=== PATIENT | female | born 1970 | race Native Hawaiian/Other Pacific Islander ===

== ENCOUNTER 2020-07-05 14:50 | Emergency (ER) | payer OTHER ==
[~2020-07-05] VITALS: Ht 157.5 cm; Wt 45.4 kg
[~2020-07-05 14:50] MED LIST: ASPIRIN ADULT L81 MG OR; CLARITIN10 MG PO; CYCL10TA35 PO; FLUTMIS2 INH; LANTUS100 MG/ML SC; METF500T PO; NEURONTIN800 MG PO; OMEP20CA PO; SERT100T PO; TOPIRAMATE50 MG PO
[2020-07-05 15:14] VITALS: BP 86/48; TEMP 97.4
[2020-07-05 15:31] LABS: PLATELET COUNT 279 K/uL (152-353)
[2020-07-05 15:45] LABS: PARTIAL THROMBOPLASTIN TIME 22.3 SECONDS (24.5-33.6)
[2020-07-05 15:52] LABS: POTASSIUM 5.1 mmol/L (3.6-5.2); SODIUM 127 mmol/L (136-145)
== END 2020-07-05 18:33 | disposition still patient (30) ==
LOC: ED 14:50
PROVIDERS: Hospitalist
DX: E86.0 Dehydration (principal); J44.9 Chronic obstructive pulmonary disease, unspecified; E11.65 Type 2 diabetes mellitus with hyperglycemia; Z79.4 Long term (current) use of insulin; Z79.84 Long term (current) use of oral hypoglycemic drugs; F17.210 Nicotine dependence, cigarettes, uncomplicated
CPT/HCPCS: 80053; 80320; 82550; 83880; 84484; 85027; 85610; 85730; 93005; 96360; 96361; 96374; 96375; 99284; J1815; J2405